=== PATIENT | male | born 1980 | race Caucasian/White ===

== ENCOUNTER 2017-12-12 05:00 | Emergency (ER) | payer BC ==
[~2017-12-12] VITALS: Ht 180.3 cm; Wt 97.5 kg
[2017-12-12 05:05] VITALS: TEMP 36.6; Ht 180.3 cm; Wt 97.5 kg
[2017-12-12] MEDS ORDERED: LIDOCAINE/EPINEPHRINE 1% 20 ML VIAL INFIL ONE (05:15)
--- NOTE | 2017-12-12 05:17 | EMERGENCY ROOM VISIT NOTE ---
History Report prepared by Yomi: Yuval Shaw Under the Supervision of: Dr. Cody Mcdonald M.D. First contact with patient: 05:02 Chief Complaint: LACERATION/CUT (SUT/DERMABOND) Stated Complaint: LACERATION History of Present Illness The patient is a 37 year old male who presents to the Emergency Room with complaints of constant decreased sensation in his left hand following an accidental laceration occurring tonight. The patient states that he accidentally cut his forearm today while cutting zip ties from a metal container. He notes that he cannot feel his middle finger. He reports that he is up to date on his tetanus shot. The patient states that he does not have a history of easy bleeding and is not on any blood thinners. He rates his pain as a 1/10. Source of History: patient Onset: today Position: other (left hand) Symptom Intensity: 1/10 Quality: other (decreased sensation) Timing: constant Review of Systems See HPI for pertinent positives & negatives. A total of 6 systems reviewed and were otherwise negative. Past Medical & Surgical Medical Problems: (1) No chronic problems Family History No pertinent family history stated. Social History Marital Status: Housing Status: lives with family Occupation Status: employed Current/Historical Medications Scheduled Cephalexin Monohydrate (Keflex), 500 MG PO QID Sertraline (Zoloft), 100 MG PO DAILY Scheduled PRN Albuterol Hfa (Ventolin Hfa), 2-4 PUFFS INH DIRECTED PRN for SOB/Wheezing Hydrocodone/Acetaminophen 5MG/325MG ([place] 5MG/325MG), 1-2 TABLET PO Q6 PRN for Pain Allergies Coded Allergies: No Known Allergies (Unverified , 12/12/17) Physical Exam Vital Signs Date Time Temp Pulse Resp B/P (MAP) Pulse Ox O2 Delivery O2 Flow Rate FiO2 12/12/17 07:06 94 16 136/82 97 12/12/17 06:29 92 16 137/84 95 Room Air 12/12/17 05:05 36.6 93 18 137/86 97 Room Air Physical Exam GENERAL: Patient is well appearing and in minimal distress. EYES: No scleral icterus, unremarkable pupils. ENT: Mucous membranes moist, no nasal congestion. NECK: No masses appreciated, no meningismus, trachea is midline. RESPIRATORY: No dyspnea. Clear to auscultation and equal bilaterally. No wheeze , no rhonchi. CARDIOVASCULAR: Regular rate and rhythm. No murmurs, rubs, gallops appreciated. EXTREMITIES: No cyanosis, no edema. 2cm vertical puncture/laceration of the mid volar forearm with minimal bleeding, appears to be a half lacerated tendon in the deep structures, distal loss of sensation of third digit other than a small area of sensation to the medial aspect of the proximal third digit, lost partial sensation of medial second digit, decreased strength on adduction of fingers between the third and fourth digit. NEUROLOGIC: Alert and oriented. SKIN: No rash, no jaundice, no diaphoresis. Medical Decision & Procedures ER Provider Diagnostic Interpretation: Radiology results and stated below per my review and interpretation: 2 VIEW LEFT FOREARM X-RAY: No fracture. No dislocation. No evidence of bony injury or foreign body. Medications Administered Medications (Trade) Dose Ordered Sig/Yolette Route Start Time Stop Time Status Last Admin Dose Admin Cephalexin Monohydrate (Keflex Cap) 500 mg NOW ONCE PO 12/12/17 06:45 12/12/17 06:46 DC 12/12/17 07:02 500 MG Acetaminophen/ Hydrocodone Bitart ([place] 5/325 Tab) 1 tab NOW STAT PO 12/12/17 06:41 12/12/17 06:42 DC 12/12/17 07:02 1 TAB Acetaminophen/ Hydrocodone Bitart ([place] 5/325mg Home Pack) 1 homepack UD ONCE PO 12/12/17 06:45 12/12/17 06:46 DC 12/12/17 07:02 1 HOMEPACK Procedure Location: Flexor aspect mid left forearm Total length: 2cm Complexity: Simple Verbal consent was obtained after the risks and benefits were explained, including but not limited to bleeding, scarring, infection, pain, and bone/joint /nerve damage. At this time, the risks of the procedure are less than the risks of NOT performing the procedure. A time out was taken and the correct patient and site identified. The skin was prepped with betadine. The target area was anesthetized with 2 ml of 1% lidocaine with epinephrine. Copious irrigation was performed using saline and betadine. The skin was re-prepped with betadine and a sterile field set. The wound was explored for foreign bodies and none found. Examination revealed no injury to deep structures such as tendons, bone, or significant blood vessels. Debridement was not performed. The wound edges were approximated using 5, 4-0 simple interrupted nylon sutures. Hemostasis and excellent approximation was achieved. Antibacterial ointment and a sterile dressing applied. Detailed wound care instructions and signs and symptoms of infection reviewed with the patient. No complications and the patient tolerated the procedure well. ED Course 0503: The patient was evaluated in room B7. A complete history and physical exam was performed. 0532: I performed a laceration repair on the patient's left forearm. 0557: I reevaluated and updated the patient. He states that he is starting to regain sensation. 0640: Reevaluated the patient. Discussed results and discharge instructions: he verbalized understanding and agreement. The patient is ready for discharge. Medical Decision 37 yr old right handed male with UTD tetanus arrives for evaluation left volar forearm laceration s/p accidental stabbing with his knife. Small laceration though appears he has managed to injure his superficial median nerve causing sensation deficit 3rd digit and questionable decreased adduction strength between 3rd and 4th digit, though strength deficit is very mild and my just be his right hand his stronger. He also mildly lacerated palmar flexor tendon but this is minimal and has on change on ability to move wrist nor strength. There is no significant arterial nor venous injury appreciated and no compartment syndrome. I copiously washed out wound without findings debris. Sutured with simple interrupted and dressing applied followed by volar splint. Discussed my preference to splint all the way up fingers though he is in town for fishing and doesn't want to do this though is at least willing to have it to distal palm to keep him from moving wrist. I discussed the utmost importance of seeing Ortho as soon as possible, but at minimum within next 7 days as longer the wait the less beneficial surgery if it is felt that might be beneficial. Will place on ABX as cut while using splint. He is from [place] and notes he will call in am to set up appointment when he gets back in 4-5 days. Reviewed symptoms requiring return. He actually did start regaining some sensation while here in ED as well as some pain thus I feel it is reasonable to dc with [place] which he has tolerated in past. [place] Drug Monitoring Program Search Results: patient reviewed within database, no issues identified Medication Reconcilliation Current Medication List: was personally reviewed by me Blood Pressure Screening Patient's blood pressure: Elevated blood pressure Blood pressure disposition: Elevated BP felt to be situational Impression Primary Impression: Laceration of left forearm with tendon involvement Additional Impressions: Median nerve injury Laceration of flexor tendon at forearm level Scribe Attestation The scribe's documentation has been prepared under my direction and personally reviewed by me in its entirety. I confirm that the note above accurately reflects all work, treatment, procedures, and medical decision making performed by me. Departure Information Dispostion Home / Self-Care Prescriptions Hydrocodone/Acetaminophen 5MG/325MG ([place] 5MG/325MG) Tab 1-2 TABLET PO Q6 Y for Pain for 3 Days, #15 TAB Prov: Cody Mcdonald M.D. 12/12/17 Cephalexin Monohydrate (Keflex) 500 Mg Cap 500 MG PO QID for 5 Days, #20 CAP Prov: Cody Mcdonald M.D. 12/12/17 Forms HOME CARE DOCUMENTATION FORM, IMPORTANT VISIT INFORMATION Patient Instructions My [facility] Additional Instructions It is very important that you follow up with an Orthopaedic surgeon within the next 7 days. Monitor for signs of infection, including increased pain, fevers, rashes, drainage. Keep would clean. Sutures should be removed in 7 - 10 days. You have received a narcotic pain medication prescription. These medications may cause drowsiness and should not be used with other sedative medications. Do not drive, drink alcohol, perform dangerous activities, nor make important decisions after taking these medications. alf use or inappropriate use may lead to addiction. Problem Qualifiers
[2017-12-12] MEDS ORDERED: SERT-234 PO (05:18)
[2017-12-12] MEDS ORDERED: VNTHFA/IN INH (05:20)
[2017-12-12] MEDS ORDERED: HYDROCODONE/ACETAMIN 5/325MG TAB PO STA (06:41)
[2017-12-12] MEDS ORDERED: CEPHALEXIN MONOHYDRATE 250 MG CAP PO ONE (06:45)
[2017-12-12] MEDS ORDERED: NORCO 5/325MG HOME PACK PO ONE (06:45)
[2017-12-12] MEDS ORDERED: CEPH500C PO (06:48)
[2017-12-12] MEDS ORDERED: HYDR-5688 PO (06:48)
[2017-12-12 07:06] VITALS: BP 136/82; PULSE 94; O2SAT 97
--- NOTE | 2017-12-12 08:52 | DIAGNOSTIC IMAGING REPORT ---
LEFT FOREARM 2 VIEWS CLINICAL HISTORY: Puncture wound. FINDINGS: AP and lateral views of the left forearm are obtained. No prior studies are available for comparison at the time of dictation. The skeletal structures are well mineralized. No fracture is seen. The wrist and elbow joints are grossly maintained. Soft tissue edema is present along the volar aspect of the distal forearm. No radiodense foreign body is identified. IMPRESSION: 1. No acute osseous abnormality is seen in the left forearm. 2. Volar soft tissue edema is noted. No radiodense foreign body is identified. Electronically signed by: Girish Frederick M.D. 12/12/2017 7:15 AM Dictated Date/Time: 12/12/2017 7:14 AM
== END 2017-12-12 07:07 | disposition home or self-care (01) ==
LOC: EDBD 05:00 → C.EDB 05:02
DX: S51.812A Laceration without foreign body of left forearm, initial encounter (principal); S54.12XA Injury of median nerve at forearm level, left arm, initial encounter; S56.222A Laceration of other flexor muscle, fascia and tendon at forearm level, left arm, initial encounter; W26.0XXA Contact with knife, initial encounter; Y93.89 Activity, other specified